=== PATIENT | female | born 1950 ===

== ENCOUNTER 2024-08-18 10:51 | Inpatient (IN) | payer OTHER ==
[~2024-08-18] VITALS: Ht 149.9 cm; Wt 68.9 kg
[2024-08-18] MEDS ORDERED: TRADJENTA5 MG (11:58)
[2024-08-18] MEDS ORDERED: SYNTHROID100 MCG (11:58)
[2024-08-18] MEDS ORDERED: METFORMIN HCL500 M3 (11:59)
[2024-08-18] MEDS ORDERED: LOSARTAN POTASS50 MG (11:59)
[2024-08-18] MEDS ORDERED: HYDROCHLOROTHIA25 MG (12:00)
[2024-08-18] MEDS ORDERED: AMLODIPINE BESYLATE (12:00)
[2024-08-18] MEDS ORDERED: METOPROLOL SUCC25 MG (12:00)
[2024-08-18] MEDS ORDERED: TIMOLOL MALEATE5 M4 (12:01)
[2024-08-18] MEDS ORDERED: ATORVASTATIN CA40 MG (12:01)
[2024-08-24] MEDS ORDERED: OMEPRAZOLE20 MG (08:19)
[2024-08-24] MEDS ORDERED: NORVASC2.5 MG (08:19)
[2024-08-24] MEDS ORDERED: MAXIMUM D3325 MCG (08:19)
[2024-08-24] MEDS ORDERED: CEFTRIAXONE SODIUM 2,000 MG VIAL IV ONE (09:15)
[2024-08-24] MEDS ORDERED: LIDOCAINE HCL 1%/EPINEPHRINE 20ML VIAL IJ ONE (09:15)
[2024-08-24] MEDS ORDERED: BUPIVACAINE HCL 30 ML VIAL IJ ONE (09:15)
[2024-08-24] MEDS ORDERED: METRONIDAZOLE/SODIUM CHLORIDE 500 MG/100 ML PIGGYBACK IV ONE (09:15)
[2024-08-24] MEDS ORDERED: SUGAMMADEX SODIUM 200 MG/2 ML VIAL IV ONE (09:30)
[2024-08-24] MEDS ORDERED: MORPHINE SULFATE 4 MG/ML VIAL IV ONE (10:30)
[2024-08-24] MEDS ORDERED: MORPHINE SULFATE 4 MG/ML CARTRIDGE IV PRN (11:00)
[2024-08-24] MEDS ORDERED: DEXTROSE 50 % IN WATER 0.5 G/ML DISP.SYRIN IV PRN ×2 (11:00→16:15)
[2024-08-24] MEDS ORDERED: OxyCODONE HCL 5 MG TABLET (ROXICODONE) PO PRN (11:00)
[2024-08-24] MEDS ORDERED: RINGERS SOLUTION,LACTATED 1,000 ML IV SCH (11:00)
[2024-08-24] MEDS ORDERED: ONDANSETRON HCL 2 MG/ML VIAL IV PRN (11:00)
[2024-08-24 11:59] LABS: HEMATOCRIT 34.7 % (36.0-45.00); HEMOGLOBIN 11.5 g/dL (12.0-15.00); MEAN CELL VOLUME 89.5 fL (80.00-100.00); MEAN CORPUSCULAR HEMOGLOBIN 29.8 pg (27.00-32.0); MEAN CORPUSCULAR HGB CONC 33.3 g/dl (32.0-36.0); PLATELET COUNT 223 K/uL (150-450); RED BLOOD COUNT 3.87 M/uL (4.00-6.00); RED CELL DISTRIBUTION WIDTH 15.5 % (11.5-14.5)
[2024-08-24] MEDS ORDERED: HYOSCYAMINE SULFATE 0.125 MG TAB.SUBL SL SCH (13:00)
[2024-08-24] MEDS ORDERED: SIMETHICONE 125 MG CAPSULE PO SCH (13:00)
[2024-08-24] MEDS ORDERED: ACETAMINOPHEN 500 MG GEL..CAP PO SCH (14:00)
[2024-08-24 16:00] VITALS: BP 97/63; O2SAT 95
[2024-08-24] MEDS ORDERED: INSULIN LISPRO 1,000 UNIT/10 ML UNITS SUBCUTANEO PRN (16:15)
[2024-08-24] MEDS ORDERED: POLYETHYLENE GLYCOL 3350 17 GM BLIST.PACK PO SCH (17:00)
[2024-08-24] MEDS ORDERED: GABAPENTIN 300 MG CAPSULE PO SCH (17:00)
[2024-08-24] MEDS ORDERED: CELECOXIB 200 MG CAPSULE PO SCH (17:00)
[2024-08-24] MEDS ORDERED: METOCLOPRAMIDE HCL 5 MG/ML VIAL IV SCH (17:00)
[2024-08-24] MEDS ORDERED: FAMOTIDINE/PF 20 MG/2 ML VIAL IV PUSH SCH (21:00)
[2024-08-25] VITALS: BP 106/53; O2SAT 97
[2024-08-25] MEDS ORDERED: LEVOTHYROXINE SODIUM 100 MCG TABLET PO SCH (06:00)
[2024-08-25 08:00] VITALS: BP 123/58; O2SAT 97
[2024-08-25] MEDS ORDERED: METOPROLOL SUCCINATE 25 MG TAB.SR.24H PO SCH (09:00)
[2024-08-25] MEDS ORDERED: LACTOBACILLUS ACIDOPHILUS 1 CAP CAP PO SCH (09:00)
[2024-08-25] MEDS ORDERED: LOSARTAN POTASSIUM 50 MG TABLET PO SCH (09:00)
[2024-08-25] MEDS ORDERED: AMLODIPINE BESYLATE 2.5 MG TABLET PO SCH (09:00)
[2024-08-25] MEDS ORDERED: LACTULOSE 20 G/30 ML BLIST.PACK PO SCH (09:00)
[2024-08-25] MEDS ORDERED: INSULIN LISPRO 1,000 UNIT/10 ML UNITS SUBCUTANEO PRN (14:45)
[2024-08-25] MEDS ORDERED: DEXTROSE 50 % IN WATER 0.5 G/ML DISP.SYRIN IV PRN (14:45)
[2024-08-25 15:30] VITALS: BP 130/60; O2SAT 90
[2024-08-25] MEDS ORDERED: ENOXAPARIN SODIUM 40 MG/0.4 ML SYRINGE SUBCUTANEO SCH (17:00)
[2024-08-26 00:55] VITALS: BP 143/67; O2SAT 100
[2024-08-26 07:07] LABS: HEMATOCRIT 34.3 % (36.0-45.00); HEMOGLOBIN 11.9 g/dL (12.0-15.00); MEAN CELL VOLUME 88.4 fL (80.00-100.00); MEAN CORPUSCULAR HEMOGLOBIN 30.6 pg (27.00-32.0); MEAN CORPUSCULAR HGB CONC 34.7 g/dl (32.0-36.0); PLATELET COUNT 214 K/uL (150-450); RED BLOOD COUNT 3.88 M/uL (4.00-6.00); RED CELL DISTRIBUTION WIDTH 15.2 % (11.5-14.5)
[2024-08-26 07:52] LABS: ALBUMIN 2.8 gm/dL (3.4-5.0); BILIRUBIN TOTAL 0.68 mg/dL (0.3-1.2); CALCIUM 8.5 mg/dL (8.5-10.1); CREATININE SERUM 0.57 mg/dL (0.55-1.02); GFR 103.12; GLOBULINA 3.2 G/DL (2.4-3.5); MAGNESIUM 1.9 mg/dL (1.8-2.4); PHOSPHOROUS 2.8 mg/dL (2.5-4.9); POTASSIUM 4.4 mEq/L (3.5-5.1)
[2024-08-26 08:00] VITALS: BP 120/61; O2SAT 94
[2024-08-26] MEDS ORDERED: ENOXAPARIN SODIUM 40 MG/0.4 ML SYRINGE SUBCUTANEO SCH (09:00)
[2024-08-26 16:00] VITALS: BP 108/55; O2SAT 90
[2024-08-26 19:00] VITALS: O2SAT 95
[2024-08-27 00:55] VITALS: BP 110/53; O2SAT 96
[2024-08-27 09:58] VITALS: BP 136/60; O2SAT 99
[2024-08-27 16:22] VITALS: BP 123/60; O2SAT 95
[2024-08-27 18:31] LABS: ABG PH 7.423 (7.35-7.45); ABG PO2 62.8 mmHg (80-100); ABG pCO2 40.4 mmHg (35-45); BASE EXCESS 1.3 mmol/l; BICARBONATE 25.8 mmol/l (23-25); SaO2 92.3 %; allen test SATISFACTORY; o2 21 %; puncture site RADIAL LEFT
[2024-08-28 01:06] VITALS: BP 136/63; O2SAT 93
[2024-08-28 10:01] VITALS: BP 144/64; O2SAT 98
== END 2024-08-28 17:07 | disposition home or self-care (01) | DRG 330 ==
LOC: O/R 08-24 05:35 → SURH 08-24 05:35
PROVIDERS: Internal Medicine; ADMIT Colon & Rectal Surgery; ATTEND Colon & Rectal Surgery
PROC: 07BC4ZZ Excision of Pelvis Lymphatic, Percutaneous Endoscopic Approach (ICD-10-PCS; 2024-08-24)
PROC: 07BB4ZZ Excision of Mesenteric Lymphatic, Percutaneous Endoscopic Approach (ICD-10-PCS; 2024-08-24)
PROC: 0DTF4ZZ Resection of Right Large Intestine, Percutaneous Endoscopic Approach (ICD-10-PCS; principal; 2024-08-24 14:30)
PROC: 5A0935A Assistance with Respiratory Ventilation, Less than 24 Consecutive Hours, High Flow/Velocity Cannula (ICD-10-PCS; 2024-08-26)
DX: C18.0 Malignant neoplasm of cecum (principal); J90 Pleural effusion, not elsewhere classified; K57.32 Diverticulitis of large intestine without perforation or abscess without bleeding; D12.1 Benign neoplasm of appendix; R59.0 Localized enlarged lymph nodes; D64.89 Other specified anemias; I10 Essential (primary) hypertension; E11.9 Type 2 diabetes mellitus without complications; Z79.84 Long term (current) use of oral hypoglycemic drugs